=== PATIENT | male | born 1975 | race Caucasian/White ===

== ENCOUNTER → 2022-10-18 | Outpatient (CLI) | payer BC ==
--- NOTE | 2022-10-18 11:14 | Diagnostic Imaging Report ---
PROCEDURE: CT chest, abdomen, and pelvis without contrast. TECHNIQUE: Multiple contiguous axial images were obtained through the chest, abdomen, and pelvis without the use of intravenous contrast. Auto Exposure Controls were utilized during the CT exam to meet ALARA standards for radiation dose reduction. INDICATION: Chest pain. Bilateral axillary and inguinal pain. COMPARISON: None. CT chest: The heart size is within normal limits. No pericardial effusion is present. There is no mediastinal, hilar, or axillary lymphadenopathy. The lungs demonstrate no pulmonary nodules or masses. There are no focal areas of consolidation. No pneumothoraces are present. No central endobronchial obstructing lesions are identified. There are no pleural effusions. No acute osseous abnormalities. CT abdomen and pelvis: The liver, spleen, pancreas, adrenal glands, and kidneys have a normal noncontrast CT appearance. There is no pathologically enlarged mesenteric or retroperitoneal adenopathy. The bowel loops are nondilated. The appendix is visualized in the right lower quadrant and has a normal appearance. There is no free fluid or free air. No acute osseous abnormalities. Ureters and bladder are normal. There is no free air, loculated collection, or adenopathy in the pelvis. IMPRESSION: 1. No acute abnormalities in the chest, abdomen and pelvis. 2. No lymphadenopathy or mass in the bilateral axillary and inguinal regions. No evidence of inguinal hernias. Dictated by: Dictated on workstation # [id number]
== END ==
LOC: RAD FS 10:46
PROVIDERS: ATTEND Family Medicine
DX: M89.8X9 Other specified disorders of bone, unspecified site (principal); M79.622 Pain in left upper arm; R10.30 Lower abdominal pain, unspecified; R07.9 Chest pain, unspecified
CPT/HCPCS: 71250; 74176